=== PATIENT | female | born 1965 | race Caucasian/White ===

== ENCOUNTER 2017-01-25 10:42 | Emergency (ER) | payer MEDICAID ==
[~2017-01-25] VITALS: Ht 167.6 cm; Wt 88.2 kg
[2017-01-25] MEDS ORDERED: KETOROLAC 30 MG/1 ML ONE (11:05)
[2017-01-25] MEDS ORDERED: HYDROmorphone 1 MG/ML, 1ML ONE (11:05)
[2017-01-25] MEDS ORDERED: DIAZEPAM 5 MG TABLET ONE (11:05)
[2017-01-25] MEDS ORDERED: ONDANSETRON 2MG/ML, 2ML IVPush ONE (12:00)
[2017-01-25] MEDS ORDERED: SODIUM CHLORIDE FLUSH 10ML SYR IVF ONE (12:00)
[2017-01-25] MEDS ORDERED: SODIUM CHLORIDE 0.9% 1,000ML IVBOLUS ONE (12:00)
[2017-01-25] MEDS ORDERED: HYDROmorphone 1 MG/ML, 1ML IVPush PRN (12:00)
[2017-01-25] MEDS ORDERED: MORPHINE SULFATE 4 MG/ML, 1ML ONE ×2 (12:12→13:16)
[2017-01-25] MEDS ORDERED: ONDANSETRON 2MG/ML, 2ML ONE (12:12)
[2017-01-25 12:15] LABS: HEMOGLOBIN 15.5 g/dL (11.7-16.4)
[2017-01-25] MEDS: MORPHINE SULFATE 4 MG/ML, 1ML IVPush PRN ×2 (12:20→13:18)
[2017-01-25 12:31] LABS: BLOOD UREA NITROGEN 9 mg/dL (7-18)
[2017-01-25] MEDS ORDERED: TRAZ150T68 PO (12:32)
[2017-01-25] MEDS ORDERED: HYDR25TA11 PO (12:32)
[2017-01-25] MEDS ORDERED: BUDE10.22 IH (12:32)
[2017-01-25] MEDS ORDERED: CLON0.1T PO (12:32)
[2017-01-25] MEDS ORDERED: METF10002 PO (12:32)
[2017-01-25] MEDS ORDERED: ZOLP10TA PO (12:32)
[2017-01-25] MEDS ORDERED: METO50TA82 PO (12:32)
[2017-01-25] MEDS ORDERED: HYDR25TA6 PO (12:32)
[2017-01-25] MEDS ORDERED: ROPI2TAB3 PO (12:32)
[2017-01-25] MEDS ORDERED: ESTR1TAB15 PO (12:32)
[2017-01-25 12:34] LABS: ASPARTATE AMINO TRANSFERASE 26 U/L (15-37)
[2017-01-25 12:36] LABS: IS PT STATUS REG ER OR PRE ER? YES
[2017-01-25 13:01] LABS: HCG UR OBC PASS
[2017-01-25 13:56] VITALS: BP 136/87
== END 2017-01-25 13:58 | disposition home or self-care (01) ==
LOC: ED 13:52
DX: R07.2 Precordial pain (principal); R10.84 Generalized abdominal pain
CPT/HCPCS: 36415; 74022; 80053; 81003; 81025; 83605; 83690; 84484; 85025; 85379; 85610; 93005; 96361; 96374; 96375; 96376; 99285; J2405; J7030

== ENCOUNTER 2017-05-14 20:29 | Emergency (ER) | payer MEDICAID ==
[~2017-05-14] VITALS: Ht 167.6 cm; Wt 88.4 kg
[~2017-05-14 20:29] MED LIST: BUDE10.22 IH; CLON0.1T PO; ESTR1TAB15 PO; HYDR25TA11 PO; HYDR25TA6 PO; METF10002 PO; METO25TA35 PO; METO50TA82 PO; ROPI2TAB3 PO; TRAZ150T68 PO; ZOLP10TA PO
[2017-05-14] MEDS ORDERED: ONDANSETRON ODT 4 MG ONE (21:16)
[2017-05-14] MEDS ORDERED: HYDROcodone/APAP 5/325 TABLET ONE (21:16)
[2017-05-14] MEDS ORDERED: KETOROLAC 30 MG/1 ML ONE (21:17)
[2017-05-14] MEDS ORDERED: ONDANSETRON ODT 4 MG PO ONE (21:30)
[2017-05-14] MEDS ORDERED: HYDROcodone/APAP 5/325 TABLET PO ONE (21:30)
[2017-05-14] MEDS ORDERED: KETOROLAC 30 MG/1 ML IM ONE (21:30)
[2017-05-14 22:08] VITALS: BP 179/102
== END 2017-05-14 22:11 | disposition home or self-care (01) ==
LOC: ED 22:00
DX: S63.501A Unspecified sprain of right wrist, initial encounter (principal); I10 Essential (primary) hypertension; E11.9 Type 2 diabetes mellitus without complications; Z90.710 Acquired absence of both cervix and uterus; Z98.51 Tubal ligation status; Z88.2 Allergy status to sulfonamides; W19.XXXA Unspecified fall, initial encounter; Y93.89 Activity, other specified; Y92.009 Unspecified place in unspecified non-institutional (private) residence as the place of occurrence of the external cause; Y99.9 Unspecified external cause status
CPT/HCPCS: 73110; 73130; 96372; 99284; J1885; Q0162

== ENCOUNTER 2017-05-24 19:45 | Emergency (ER) | payer MEDICAID ==
[~2017-05-24] VITALS: Ht 167.6 cm; Wt 87.2 kg
[2017-05-24 19:47] VITALS: BP 132/89
[2017-05-24] MEDS ORDERED: IBUPROFEN 200 MG TABLET PO ONE (20:30)
== END 2017-05-24 21:44 | disposition home or self-care (01) ==
LOC: ED 20:00
DX: S80.212A Abrasion, left knee, initial encounter (principal); L03.116 Cellulitis of left lower limb; I10 Essential (primary) hypertension; E11.9 Type 2 diabetes mellitus without complications; Z90.710 Acquired absence of both cervix and uterus; Z98.51 Tubal ligation status; W19.XXXA Unspecified fall, initial encounter; Y93.89 Activity, other specified; Y92.009 Unspecified place in unspecified non-institutional (private) residence as the place of occurrence of the external cause; Y99.9 Unspecified external cause status
CPT/HCPCS: 99284

== ENCOUNTER 2018-01-07 13:46 | Emergency (ER) | payer MEDICAID ==
[~2018-01-07] VITALS: Ht 167.6 cm; Wt 87.3 kg
[~2018-01-07 13:46] MED LIST changes: +TRAZ150T62 PO; -TRAZ150T68 PO
[2018-01-07] MEDS ORDERED: LORazepam 2 MG/ML, 1ML IVPush ONE (14:30)
[2018-01-07] MEDS ORDERED: SODIUM CHLORIDE FLUSH 10ML SYR IVF ONE (14:30)
[2018-01-07 14:31] LABS: HCG UR SG 1.015 (1.003-1.030); MICROSCOPIC NOT IND
[2018-01-07 14:34] LABS: CULTURE INDICATED? NO
[2018-01-07 14:35] LABS: BASOPHILS # (AUTO) 0.08 x10^3/uL (0-0.1); BASOPHILS % (AUTO) 1 % (0-1); EOSINOPHILS # (AUTO) 0.15 x10^3/uL (0-0.4); EOSINOPHILS % (AUTO) 1 % (1-7); LYMPHOCYTES # (AUTO) 4.74 x10^3/uL (1-3.4); LYMPHOCYTES % (AUTO) 42 % (22-44); MD NO; MEAN CORPUSCULAR HEMOGLOBIN 32.5 pg (27.0-34.8); MEAN CORPUSCULAR HGB CONC 34.6 g/dL (32.4-35.8); MEAN PLATELET VOLUME 10.5 fL (7.4-10.4); MONOCYTES # (AUTO) 1.03 x10^3/uL (0.2-0.8); MONOCYTES % (AUTO) 9 % (2-9); NEUTROPHILS # (AUTO) 5.28 x10^3/uL (1.8-6.8); NEUTROPHILS % (AUTO) 47 % (42-75); PLATELET COUNT 222 x10^3/uL (130-400); RED BLOOD COUNT 4.51 x10^6/uL (3.82-5.3); RED CELL DISTRIBUTION WIDTH 14.4 % (9.6-15.2)
[2018-01-07] MEDS ORDERED: LORazepam 2 MG/ML, 1ML ONE (14:41)
[2018-01-07 14:49] LABS: ALANINE AMINOTRANSFERASE 112 U/L (12-78); ALBUMIN 3.7 g/dL (3.4-5.0); ANION GAP 17 mmol/L (5-15); CHLORIDE 104 mmol/L (98-107); CREATININE 1.09 mg/dL (0.55-1.02)
[2018-01-07 14:53] LABS: ALKALINE PHOSPHATASE 127 U/L (45-117); BILIRUBIN,TOTAL 0.5 mg/dL (0.2-1.0); TOTAL PROTEIN 8.1 g/dL (6.4-8.2); TROPONIN I < 0.015 ng/mL (0.000-0.045)
[2018-01-07] MEDS ORDERED: ONDANSETRON 2MG/ML, 2ML ONE (15:13)
[2018-01-07] MEDS ORDERED: MORPHINE SULFATE 4 MG/ML, 1ML ONE (15:13)
[2018-01-07] MEDS ORDERED: MORPHINE SULFATE 4 MG/ML, 1ML IVPush ONE (15:30)
[2018-01-07] MEDS ORDERED: ONDANSETRON 2MG/ML, 2ML IVPush ONE (15:30)
[2018-01-07] MEDS ORDERED: SODIUM CHLORIDE 0.9% 1,000ML IVBOLUS ONE (15:30)
[2018-01-07] MEDS ORDERED: OMNIPAQUE 350 MG/ML, 100ML BOTTLE ONE (16:23)
[2018-01-07 16:27] VITALS: BP 122/68
[2018-01-07] MEDS ORDERED: PROCHLORPERAZINE 5 MG/ML, 2ML ONE (16:50)
[2018-01-07] MEDS ORDERED: PROCHLORPERAZINE 5 MG/ML, 2ML IVPush ONE (17:00)
== END 2018-01-07 17:18 | disposition home or self-care (01) ==
LOC: ED 15:00
DX: R06.00 Dyspnea, unspecified (principal); J20.8 Acute bronchitis due to other specified organisms; R79.89 Other specified abnormal findings of blood chemistry; B97.89 Other viral agents as the cause of diseases classified elsewhere; E11.9 Type 2 diabetes mellitus without complications; E78.00 Pure hypercholesterolemia, unspecified; I10 Essential (primary) hypertension; J44.0 Chronic obstructive pulmonary disease with (acute) lower respiratory infection; Z90.49 Acquired absence of other specified parts of digestive tract
CPT/HCPCS: 36415; 71045; 71275; 80053; 81003; 81025; 83690; 84484; 85025; 93005; 96361; 96374; 96375; 99285; J0780; J2060; J2405; J7030; Q9967

== ENCOUNTER 2019-04-01 22:31 | Emergency (ER) | payer MEDICAID ==
[~2019-04-01] VITALS: Ht 170.2 cm; Wt 83.9 kg
[~2019-04-01 22:31] MED LIST changes: -CLON0.1T PO; +CLON0.1T22 PO
[2019-04-01 22:33] VITALS: BP 148/99
--- NOTE | 2019-04-01 22:46 | NUR ---
ATTEMPT X 1 AT THIS TIME. PT NOT IN LOBBY.
[2019-04-01] MEDS ORDERED: KETOROLAC 30 MG/1 ML ONE (23:28)
[2019-04-01] MEDS ORDERED: KETOROLAC 30 MG/1 ML IM ONE (23:30)
--- NOTE | 2019-04-01 23:49 | NUR ---
WRIST LACER AND SLING APPLIED BY TECH. DC EDUCATION PROVIDED, PT DEMONSTRATES UNDERSTANDING. PT AMBULATED STEADILY TO DC WITH RN
== END 2019-04-01 23:53 | disposition home or self-care (01) ==
LOC: ED 23:40
DX: G89.11 Acute pain due to trauma (principal); M25.511 Pain in right shoulder; M25.531 Pain in right wrist; F10.10 Alcohol abuse, uncomplicated; E11.9 Type 2 diabetes mellitus without complications; I10 Essential (primary) hypertension; J44.9 Chronic obstructive pulmonary disease, unspecified; E78.00 Pure hypercholesterolemia, unspecified; F17.210 Nicotine dependence, cigarettes, uncomplicated; Z72.9 Problem related to lifestyle, unspecified; Z75.9 Unspecified problem related to medical facilities and other health care; Y90.9 Presence of alcohol in blood, level not specified; Z90.710 Acquired absence of both cervix and uterus; Z98.51 Tubal ligation status; Z90.89 Acquired absence of other organs; W01.0XXA Fall on same level from slipping, tripping and stumbling without subsequent striking against object, initial encounter; Y93.89 Activity, other specified; Y92.89 Other specified places as the place of occurrence of the external cause; Y99.8 Other external cause status
CPT/HCPCS: 29105; 73030; 73110; 96372; 99283; J1885

== ENCOUNTER 2019-09-12 11:12 | Inpatient (IN) | payer MEDICAID ==
[~2019-09-12] VITALS: Ht 167.6 cm; Wt 83.3 kg
[~2019-09-12 11:12] MED LIST changes: +HYDR-826 PO; -HYDR25TA11 PO
[2019-09-12] MEDS ORDERED: DOCUSATE 100 MG CAPSULE PO PRN (12:00)
[2019-09-12] MEDS ORDERED: BISACODYL 10 MG SUPP PR PRN (12:00)
[2019-09-12] MEDS ORDERED: POLYETHYLENE GLYCOL 17 GM PACKET PO PRN (12:00)
[2019-09-12] MEDS ORDERED: LEVE500T8 PO (12:53)
[2019-09-12] MEDS ORDERED: NPH,100I4 SC (12:53)
[2019-09-12] MEDS ORDERED: SPIR50TA4 PO (12:53)
[2019-09-12] MEDS ORDERED: INSU100C5 SQ-INSULIN (12:53)
[2019-09-12] MEDS ORDERED: FOLI-17 PO (12:53)
[2019-09-12] MEDS ORDERED: NICO-487 TD (12:53)
[2019-09-12] MEDS ORDERED: LISI40TA PO (12:53)
[2019-09-12] MEDS ORDERED: TRAZ50TA66 PO (12:53)
[2019-09-12] MEDS ORDERED: CARV12.52 PO (12:53)
[2019-09-12] MEDS ORDERED: MAG-124 PO (12:53)
[2019-09-12] MEDS ORDERED: PANT40TA5 PO (12:53)
[2019-09-12] MEDS ORDERED: MULT-658 PO (12:53)
[2019-09-12] MEDS ORDERED: RISP0.5T3 PO (12:53)
[2019-09-12] MEDS ORDERED: DIPHENHYDRAMINE 25 MG CAPSULE PO PRN (13:00)
[2019-09-12 15:27] VITALS: BP 123/84
[2019-09-12 16:26] LABS: MICROSCOPIC NOT IND
[2019-09-12 16:40] LABS: CULTURE INDICATED? NO
[2019-09-12] MEDS: ACAMPROSATE 333 MG TABLET.DR PO SCH ×2 (17:04→20:35)
[2019-09-12 19:28] VITALS: BP 124/85
[2019-09-12] MEDS: metFORMIN 500 MG TABLET PO SCH (20:35)
[2019-09-12] MEDS: CARVEDILOL 12.5 MG TABLET PO SCH (20:35)
[2019-09-12] MEDS: TRAZODONE 50MG TABLET PO SCH (20:35)
[2019-09-12] MEDS: LEVETIRACETAM 500 MG TABLET PO SCH (20:36)
[2019-09-12] MEDS: INSULIN LISPRO 100 UNITS/ML, PEN SQ-INSULIN SCH (20:45)
[2019-09-12] MEDS ORDERED: TRAZODONE 50MG TABLET PO SCH (21:00)
[2019-09-12] MEDS ORDERED: TEMPLATE NON-FORMULARY MED. (Insulin Aspart** (Novolog**) 0 UNITS) SQ SCH (21:00)
[2019-09-12] MEDS: MELATONIN 3 MG TABLET PO SCH (21:00)
[2019-09-13 05:12] LABS: MEAN CORPUSCULAR HEMOGLOBIN 31.3 pg (27.0-34.8); MEAN CORPUSCULAR HGB CONC 32.8 g/dL (32.4-35.8); MEAN CORPUSCULAR VOLUME 95.4 fL (80-100); MEAN PLATELET VOLUME 11.6 fL (7.4-10.4); PLATELET COUNT 324 x10^3/uL (130-400); RED BLOOD COUNT 4.19 x10^6/uL (3.82-5.3)
[2019-09-13 05:23] LABS: ANION GAP 8 mmol/L (5-15); CALCIUM 10.6 mg/dL (8.5-10.1); CHLORIDE 105 mmol/L (98-107); CHOLESTEROL, TOTAL 233 mg/dL (140-239); CREATININE 0.69 mg/dL (0.55-1.02); TRIGLYCERIDES 222 mg/dL (50-200); VLDL CHOLESTEROL 44 mg/dL (0-25)
[2019-09-13 05:50] LABS: CHOL/HDL RATIO 5.2; HDL CHOL % 19 % (28-40); HDL CHOLESTEROL (DIRECT) 45 mg/dL (40-60); LDL CHOLESTEROL,CALCULATED 144 mg/dL (54-169); LDL/HDL RATIO 3.2 (0.5-3.0)
[2019-09-13 06:03] LABS: BASOPHILS # (AUTO) 0.12 x10^3/uL (0-0.1); BASOPHILS % (AUTO) 1 % (0-1); EOSINOPHILS # (AUTO) 0.55 x10^3/uL (0-0.4); EOSINOPHILS % (AUTO) 5 % (1-7); LYMPHOCYTES # (AUTO) 3.86 x10^3/uL (1-3.4); LYMPHOCYTES % (AUTO) 34 % (22-44); MD SCAN; MONOCYTES # (AUTO) 1.35 x10^3/uL (0.2-0.8); MONOCYTES % (AUTO) 12 % (2-9); NEUTROPHILS % (AUTO) 49 % (42-75)
[2019-09-13] MEDS: INSULIN LISPRO 100 UNITS/ML, PEN SQ-INSULIN SCH ×4 (07:00→21:00)
[2019-09-13 07:06] VITALS: BP 113/80
[2019-09-13] MEDS: ACAMPROSATE 333 MG TABLET.DR PO SCH ×3 (08:53→20:33)
[2019-09-13] MEDS: VENLAFAXINE XR 37.5MG CAP.ER.24H PO SCH (08:53)
[2019-09-13] MEDS: CARVEDILOL 12.5 MG TABLET PO SCH ×2 (08:53→20:33)
[2019-09-13] MEDS: LEVETIRACETAM 500 MG TABLET PO SCH ×2 (08:53→20:33)
[2019-09-13] MEDS: metFORMIN 500 MG TABLET PO SCH ×2 (08:53→09:00)
[2019-09-13] MEDS: THIAMINE 100MG TABLET PO SCH (08:53)
[2019-09-13] MEDS: RISPERIDONE 0.5 MG TABLET PO SCH (08:53)
[2019-09-13] MEDS: FOLIC ACID 1 MG TABLET PO SCH (08:54)
[2019-09-13] MEDS: LISINOPRIL 40 MG TABLET PO SCH (08:54)
[2019-09-13] MEDS: MULTIVITAMIN 1 TABLET PO SCH (08:57)
[2019-09-13] MEDS: SPIRONOLACTONE 50 MG TABLET PO SCH (08:57)
[2019-09-13] MEDS ORDERED: FOLIC ACID 1 MG TABLET PO SCH (09:00)
[2019-09-13] MEDS ORDERED: RISPERIDONE 0.5 MG TABLET PO SCH (09:00)
[2019-09-13] MEDS ORDERED: MULTIVITAMIN 1 TABLET PO SCH (09:00)
[2019-09-13] MEDS: NICOTINE 21 MG/24 HR PATCH.TD24 TD SCH (09:04)
[2019-09-13] MEDS: ACETAMINOPHEN 325 MG TABLET PO PRN (15:20)
[2019-09-13] MEDS: LIDODERM 5% PATCH TD SCH (16:27)
[2019-09-13 19:42] VITALS: BP 107/73
[2019-09-13] MEDS: ATORVASTATIN 20 MG TABLET PO SCH (20:32)
[2019-09-13] MEDS: MELATONIN 3 MG TABLET PO SCH (20:33)
[2019-09-13] MEDS: TRAZODONE 50MG TABLET PO SCH (20:33)
[2019-09-14] MEDS: LIDODERM REMOVE PATCH NOTE XX SCH (04:00)
[2019-09-14] MEDS: INSULIN LISPRO 100 UNITS/ML, PEN SQ-INSULIN SCH ×4 (07:00→20:48)
[2019-09-14 07:40] VITALS: BP 135/82
[2019-09-14] MEDS: CARVEDILOL 12.5 MG TABLET PO SCH ×2 (08:18→20:40)
[2019-09-14] MEDS: VENLAFAXINE XR 37.5MG CAP.ER.24H PO SCH (08:18)
[2019-09-14] MEDS: ACAMPROSATE 333 MG TABLET.DR PO SCH ×3 (08:18→20:40)
[2019-09-14] MEDS: FOLIC ACID 1 MG TABLET PO SCH (08:19)
[2019-09-14] MEDS: LEVETIRACETAM 500 MG TABLET PO SCH ×2 (08:22→20:40)
[2019-09-14] MEDS: LISINOPRIL 40 MG TABLET PO SCH (08:23)
[2019-09-14] MEDS: LINAGLIPTIN 5 MG TAB PO SCH (08:27)
[2019-09-14] MEDS: SPIRONOLACTONE 50 MG TABLET PO SCH (09:00)
[2019-09-14] MEDS: RISPERIDONE 0.5 MG TABLET PO SCH (09:03)
[2019-09-14] MEDS: MULTIVITAMIN 1 TABLET PO SCH (09:04)
[2019-09-14] MEDS: THIAMINE 100MG TABLET PO SCH (09:05)
[2019-09-14] MEDS: NICOTINE 21 MG/24 HR PATCH.TD24 TD SCH (10:28)
[2019-09-14] MEDS: LIDODERM 5% PATCH TD SCH (10:29)
[2019-09-14] MEDS: ACETAMINOPHEN 325 MG TABLET PO PRN (15:42)
[2019-09-14 19:41] VITALS: BP 105/71
[2019-09-14] MEDS: TRAZODONE 50MG TABLET PO SCH (20:40)
[2019-09-14] MEDS: MELATONIN 3 MG TABLET PO SCH (20:40)
[2019-09-14] MEDS: ATORVASTATIN 20 MG TABLET PO SCH (20:40)
[2019-09-15] MEDS: LIDODERM REMOVE PATCH NOTE XX SCH (02:55)
[2019-09-15 07:46] VITALS: BP 103/70
[2019-09-15] MEDS: INSULIN LISPRO 100 UNITS/ML, PEN SQ-INSULIN SCH ×4 (08:01→20:30)
[2019-09-15] MEDS: SPIRONOLACTONE 50 MG TABLET PO SCH (08:28)
[2019-09-15] MEDS: CARVEDILOL 12.5 MG TABLET PO SCH ×2 (08:29→20:10)
[2019-09-15] MEDS: VENLAFAXINE XR 37.5MG CAP.ER.24H PO SCH (08:29)
[2019-09-15] MEDS: ACAMPROSATE 333 MG TABLET.DR PO SCH ×3 (08:29→20:10)
[2019-09-15] MEDS: FOLIC ACID 1 MG TABLET PO SCH (08:30)
[2019-09-15] MEDS: RISPERIDONE 0.5 MG TABLET PO SCH (08:30)
[2019-09-15] MEDS: LEVETIRACETAM 500 MG TABLET PO SCH ×2 (08:30→20:09)
[2019-09-15] MEDS: LINAGLIPTIN 5 MG TAB PO SCH (08:31)
[2019-09-15] MEDS: THIAMINE 100MG TABLET PO SCH (08:31)
[2019-09-15] MEDS: NICOTINE 21 MG/24 HR PATCH.TD24 TD SCH (08:32)
[2019-09-15] MEDS: LISINOPRIL 40 MG TABLET PO SCH (08:32)
[2019-09-15] MEDS: MULTIVITAMIN 1 TABLET PO SCH (08:33)
[2019-09-15] MEDS: ACETAMINOPHEN 325 MG TABLET PO PRN (13:01)
[2019-09-15] MEDS: LIDODERM 5% PATCH TD SCH ×2 (13:02→20:10)
[2019-09-15 17:28] LABS: MICROSCOPIC NOT IND
[2019-09-15 17:38] LABS: CULTURE INDICATED? NO
[2019-09-15 19:35] VITALS: BP 120/84
[2019-09-15] MEDS: ATORVASTATIN 20 MG TABLET PO SCH (20:09)
[2019-09-15] MEDS: TRAZODONE 50MG TABLET PO SCH (20:09)
[2019-09-15] MEDS: MELATONIN 3 MG TABLET PO SCH (20:09)
[2019-09-16] MEDS: LIDODERM REMOVE PATCH NOTE XX SCH (04:00)
[2019-09-16 07:15] VITALS: BP 106/74
[2019-09-16] MEDS: INSULIN LISPRO 100 UNITS/ML, PEN SQ-INSULIN SCH ×4 (07:36→20:26)
[2019-09-16] MEDS: NICOTINE 21 MG/24 HR PATCH.TD24 TD SCH (08:08)
[2019-09-16] MEDS: VENLAFAXINE XR 37.5MG CAP.ER.24H PO SCH (08:08)
[2019-09-16] MEDS: LISINOPRIL 40 MG TABLET PO SCH (08:08)
[2019-09-16] MEDS: LINAGLIPTIN 5 MG TAB PO SCH (08:08)
[2019-09-16] MEDS: MULTIVITAMIN 1 TABLET PO SCH (08:08)
[2019-09-16] MEDS: THIAMINE 100MG TABLET PO SCH (08:09)
[2019-09-16] MEDS: SPIRONOLACTONE 50 MG TABLET PO SCH (08:09)
[2019-09-16] MEDS: ACAMPROSATE 333 MG TABLET.DR PO SCH ×3 (08:09→20:25)
[2019-09-16] MEDS: LEVETIRACETAM 500 MG TABLET PO SCH ×2 (08:09→20:23)
[2019-09-16] MEDS: RISPERIDONE 0.5 MG TABLET PO SCH (08:09)
[2019-09-16] MEDS: CARVEDILOL 12.5 MG TABLET PO SCH ×2 (08:09→20:23)
[2019-09-16] MEDS: FOLIC ACID 1 MG TABLET PO SCH (08:09)
[2019-09-16] MEDS: ACETAMINOPHEN 325 MG TABLET PO PRN (15:09)
[2019-09-16 19:38] VITALS: BP 105/72
[2019-09-16] MEDS: ATORVASTATIN 20 MG TABLET PO SCH (20:23)
[2019-09-16] MEDS: MELATONIN 3 MG TABLET PO SCH (20:23)
[2019-09-16] MEDS: TRAZODONE 50MG TABLET PO SCH (20:26)
[2019-09-17] MEDS: LIDODERM REMOVE PATCH NOTE XX SCH (05:00)
[2019-09-17 07:32] VITALS: BP 110/75
[2019-09-17] MEDS: INSULIN LISPRO 100 UNITS/ML, PEN SQ-INSULIN SCH ×2 (07:50→11:27)
[2019-09-17] MEDS: FOLIC ACID 1 MG TABLET PO SCH (08:24)
[2019-09-17] MEDS: SPIRONOLACTONE 50 MG TABLET PO SCH (08:24)
[2019-09-17] MEDS: LISINOPRIL 40 MG TABLET PO SCH (08:24)
[2019-09-17] MEDS: THIAMINE 100MG TABLET PO SCH (08:24)
[2019-09-17] MEDS: RISPERIDONE 0.5 MG TABLET PO SCH (08:24)
[2019-09-17] MEDS: LEVETIRACETAM 500 MG TABLET PO SCH (08:24)
[2019-09-17] MEDS: MULTIVITAMIN 1 TABLET PO SCH (08:25)
[2019-09-17] MEDS: CARVEDILOL 12.5 MG TABLET PO SCH (08:25)
[2019-09-17] MEDS: VENLAFAXINE XR 37.5MG CAP.ER.24H PO SCH (08:25)
[2019-09-17] MEDS: ACAMPROSATE 333 MG TABLET.DR PO SCH (08:25)
[2019-09-17] MEDS: LINAGLIPTIN 5 MG TAB PO SCH (08:25)
[2019-09-17] MEDS: NICOTINE 21 MG/24 HR PATCH.TD24 TD SCH (08:25)
[2019-09-17] MEDS: ACETAMINOPHEN 325 MG TABLET PO PRN ×2 (08:32→14:27)
[2019-09-17] MEDS ORDERED: LINA5TAB PO (13:19)
[2019-09-17] MEDS ORDERED: ACAM333T7 PO (13:19)
[2019-09-17] MEDS ORDERED: VENL37.52 PO (13:19)
[2019-09-17] MEDS ORDERED: CARV12.52 PO (13:19)
[2019-09-17] MEDS ORDERED: NICO-487 TD (13:19)
[2019-09-17] MEDS ORDERED: MULT1TAB60 PO (13:19)
[2019-09-17] MEDS ORDERED: LEVE500T53 PO (13:19)
[2019-09-17] MEDS ORDERED: MELA3TAB56 PO (13:19)
[2019-09-17] MEDS ORDERED: TRAZ50TA66 PO (13:19)
[2019-09-17] MEDS ORDERED: ATOR20TA37 PO (13:19)
[2019-09-17] MEDS ORDERED: LISI40TA PO (13:19)
[2019-09-17] MEDS ORDERED: SPIR50TA PO (13:19)
[2019-09-17] MEDS ORDERED: RISP0.5T24 PO (13:19)
== END 2019-09-17 15:30 | disposition home or self-care (01) | DRG 753 ==
LOC: 3E 14:41
PROVIDERS: ADMIT Psychiatry & Neurology Psychosomatic Medicine; ATTEND Psychiatry & Neurology Psychosomatic Medicine
DX: F31.30 Bipolar disorder, current episode depressed, mild or moderate severity, unspecified (principal); E11.9 Type 2 diabetes mellitus without complications; Z88.2 Allergy status to sulfonamides; Z88.6 Allergy status to analgesic agent; Z91.048 Other nonmedicinal substance allergy status; E78.5 Hyperlipidemia, unspecified; F10.20 Alcohol dependence, uncomplicated; Y90.9 Presence of alcohol in blood, level not specified; F17.200 Nicotine dependence, unspecified, uncomplicated; G40.909 Epilepsy, unspecified, not intractable, without status epilepticus; G47.00 Insomnia, unspecified; I10 Essential (primary) hypertension; Z79.84 Long term (current) use of oral hypoglycemic drugs; Z79.899 Other long term (current) drug therapy; Z86.73 Personal history of transient ischemic attack (TIA), and cerebral infarction without residual deficits; Z90.710 Acquired absence of both cervix and uterus; Z83.3 Family history of diabetes mellitus; Z82.49 Family history of ischemic heart disease and other diseases of the circulatory system; Z80.43 Family history of malignant neoplasm of testis
CPT/HCPCS: 36415; 80048; 80061; 81003; 82140; 82607; 82962; 84439; 84443; 85025; 93005; J1815